=== PATIENT | male | born 1955 | race Caucasian/White ===

== ENCOUNTER → 2016-08-06 | Outpatient (CLI) | payer BC ==
--- NOTE | 2016-08-06 12:47 | US ---
Renal Sonography Clinical History: 60-year-old male with 2 to 3 instances of bilateral flank pain which occurred over 2 weeks ago, with no current pain. ICD10 Diagnostic Code: R10.9. Technique: A curvilinear 5 MHz transducer was used to sonographically evaluate the kidneys and urinar y bladder. Color Doppler was used. Pre- and postvoid imaging was acquired. Comparison Study: Renal sonography, dated January 23, 2014. Findings: The right kidney measures 9.7 x 5.3 x 5.4 cm and on the previous exam in 2013, measured 9.2 x 4.9 x 5.2 cm. The left kidney is larger than the right, currently measuring 12.2 x 6.6 x 7.8 cm, p reviously measured 13.0 x 5.9 x 5.2 cm. The left renal cortex measures 2.8 cm, and the right renal co rtex measures 1.8 cm. There is no focal renal mass, hydronephrosis, or perinephric fluid. Mild hepati c steatosis is observed. On images 13 and 14, there is some bowel gas with acoustic shadowing. The so nographer indicated that the patient had just eaten, and his gallbladder could not be confidently see n adjacent to the bowel gas. On the prior study in 2013, there was a gallbladder filled with stones with a "ADELE" triad (tglv-cvmc-kuxmro complex) present. The urinary bladder is moderately distended, w ith a prevoid volume of 139 mL and postvoid residual of 8 mL. Ureteral jets are confirmed with color Doppler. Impression: Sonographically similar to January 23, 2014. If there is further clinical concern regarding the patient's flank pain, and possible occult nephrour eterolithiasis, unenhanced CT imaging could be considered.
== END ==
LOC: BMCIMAGING 11:29
PROVIDERS: ATTEND Internal Medicine
DX: R10.9 Unspecified abdominal pain (principal)

== ENCOUNTER → 2016-11-14 | Outpatient (CLI) | payer BC | LOC: BMCIMAGING 14:08 | PROVIDERS: ATTEND Orthopaedic Surgery | DX: M25.562 Pain in left knee (principal) ==

== ENCOUNTER 2017-04-21 15:11 | Observation (INO) | payer BC ==
--- NOTE | 2017-04-21 15:36 | EDPHY ---
H & P Stated Complaint: 3 wks ago had R sided stomach pain; got better until today; wants US Time Seen by Provider: 04/21/17 15:34 HPI/ROS: CHIEF COMPLAINT: Intermittent abdominal pain HISTORY OF PRESENT ILLNESS: The patient presents the ED for evaluation of intermittent right upper and mid quadrant pain. The patient 1st experience symptoms approximately 3 weeks ago which were brief and self-limited. He has been asymptomatic until yesterday when he was returning from an international flight and developed recurrent symptoms. The patient complains of moderate right mid quadrant pain with associated nausea. He denies vomiting or diarrhea. He has had a mild upper respiratory infection for the past several weeks. The patient denies hematuria or dysuria. The patient denies prior history of abdominal surgery. He denies additional acute complaints. REVIEW OF SYSTEMS: A comprehensive 10 point review of systems is otherwise negative aside from elements mentioned in the history of present illness. Source: Patient Exam Limitations: No limitations - Personal History Current Tetanus Diphtheria and Acellular Pertussis (TDAP): Yes - Medical/Surgical History Other PMH: HTN, cholesterol. psoriasis - Social History Smoking Status: Never smoked - Physical Exam Exam: General Appearance: Alert, no distress Eyes: Pupils equal and round no pallor or injection ENT, Mouth: Mucous membranes moist Respiratory: There are no retractions, lungs are clear to auscultation Cardiovascular: Regular rate and rhythm Gastrointestinal: Mild tenderness to deep palpation right middle quadrant Neurological: A&O, normal motor function, normal sensory exam, normal cranial nerves Skin: Warm and dry, no rashes Musculoskeletal: Neck is supple nontender Extremities: symmetrical, full range of motion Constitutional: Initial Vital Signs Temperature (C) 36.7 C 04/21/17 15:13 Heart Rate 63 04/21/17 15:13 Respiratory Rate 18 04/21/17 15:13 Blood Pressure 155/106 H 04/21/17 15:13 O2 Sat (%) 95 04/21/17 15:13 O2 Delivery Mode Room Air Allergies/Adverse Reactions: Penicillins Allergy (Mild, Verified 04/21/17 15:12) rash as child Home Medications: Medication Instructions Recorded Aspirin EC [Aspirin EC 81 mg (*)] 81 mg PO DAILY 04/21/17 Folic Acid [Folic Acid 1 MG (*)] 1 mg PO DAILY 04/21/17 Methotrexate [Xatmep] 2.5 mg PO 04/21/17 Rovustatin 04/21/17 Triamterene [Dyrenium 50MG (*)] 50 mg PO DAILY 04/21/17 Medical Decision Making - Diagnostics Imaging Results: Imaging Impressions Abdomen Ultrasound 04/21/17 15:48 Impression: 1. Gallbladder filled with stones and positive sonographic Proctor sign. 2. No biliary dilation or evidence of common bile duct stone. 3. Minimal hepatomegaly and suspect hepatic steatosis. 4. No free fluid. Findings discussed with emergency department physician, Srikanth Warren at April 21, 2017 at 1647 hours. Chest/Thorax CTA 04/21/17 18:40 Impression: 1. No evidence of thrombopulmonary embolic disease. 2. Cholelithiasis. 3. Minimal bibasilar atelectasis. No pleural effusion. 4. Three-vessel calcified coronary artery plaque. Findings discussed with emergency department physician, Srikanth Warren MD on April 21, 2017 at 7:14 p.m. ED Course/Re-evaluation: The patient presents to the ED for evaluation of right upper quadrant and right lower thoracic pain. The patient had a index episode of pain 3 weeks ago which resolved spontaneously. The patient recently returned from [place] and developed recurrent symptoms over the past day. The patient reports a pain in the right lower portion of his chest in his right upper quadrant. On examination he had only minimal tenderness on exam. He was noted to be afebrile with normal liver function test and normal serum chemistries. The patient's gallbladder ultrasound does demonstrate evidence of gallstones. It is difficult to assess the gallbladder wall secondary to the contracted status of the gallbladder. As I re-evaluated the patient several times I am quite unimpressed by his level of tenderness. The differential diagnosis the was expanded to pulmonary embolism given his recent travel. The patient was noted to have an elevated D-dimer. A CT pulmonary angiogram was ordered at 7:[address] pulmonary angiogram demonstrates no evidence of a PE. At this point time the etiology of the patient's symptoms likely are related to his gallbladder. The patient continues to endorse symptoms of ongoing pain. I consulted with Dr. Henry at 7:45pm and have asked him to consult on the patient. The patient will be admitted to the hospital under the care of the surgical service this evening where he will undergo cholecystectomy for presumed cholecystitis status symptomatic cholelithiasis. Differential Diagnosis: Differential diagnosis considered includes pulmonary embolism, cholelithiasis, cholecystitis, peptic ulcer disease, urinary tract infection, nephrolithiasis - Data Points Laboratory Results: Laboratory Results 04/21/17 16:40 04/21/17 15:48 04/21/17 04/21/17 04/21/17 16:40 16:40 16:40 WBC 11.42 10^3/uL H 10^3/uL (3.80-9.50) RBC 4.22 10^6/uL L 10^6/uL (4.40-6.38) Hgb 13.8 g/dL g/dL (13.7-17.5) Hct 38.3 % L % (40.0-51.0) MCV 90.8 fL fL (81.5-99.8) MCH 32.7 pg pg (27.9-34.1) MCHC 36.0 g/dL g/dL (32.4-36.7) RDW 13.3 % % (11.5-15.2) Plt Count 211 10^3/uL 10^3/uL (150-400) MPV 10.0 fL fL (8.7-11.7) Neut % (Auto) 75.3 % H % (39.3-74.2) Lymph % (Auto) 12.8 % L % (15.0-45.0) [place] % (Auto) 9.7 % % (4.5-13.0) Eos % (Auto) 1.2 % % (0.6-7.6) Baso % (Auto) 0.5 % % (0.3-1.7) Nucleat RBC Rel Count 0.0 % % (0.0-0.2) Absolute Neuts (auto) 8.59 10^3/uL H 10^3/uL (1.70-6.50) Absolute Lymphs (auto) 1.46 10^3/uL 10^3/uL (1.00-3.00) Absolute Monos (auto) 1.11 10^3/uL H 10^3/uL (0.30-0.80) Absolute Eos (auto) 0.14 10^3/uL 10^3/uL (0.03-0.40) Absolute Basos (auto) 0.06 10^3/uL 10^3/uL (0.02-0.10) Absolute Nucleated RBC 0.00 10^3/uL 10^3/uL (0-0.01) Immature Gran % 0.5 % % (0.0-1.1) Immature Gran # 0.06 10^3/uL 10^3/uL (0.00-0.10) D-Dimer Sodium Potassium Chloride Carbon Dioxide Anion Gap BUN Creatinine Estimated GFR Glucose Calcium Total Bilirubin Conjugated Bilirubin Unconjugated Bilirubin AST ALT Alkaline Phosphatase Total Protein Albumin Lipase Urine Color YELLOW Urine Appearance HAZY Urine pH 5.0 (5.0-7.5) Ur Specific [place] 1.026 (1.002-1.030) Urine Protein NEGATIVE (NEGATIVE) Urine Ketones NEGATIVE (NEGATIVE) Urine Blood NEGATIVE (NEGATIVE) Urine Nitrate NEGATIVE (NEGATIVE) Urine Bilirubin NEGATIVE (NEGATIVE) Urine Urobilinogen 4.0 EU H EU (0.2-1.0) Ur Leukocyte Esterase NEGATIVE (NEGATIVE) Urine RBC Cancelled 3-5 /hpf H /hpf (0-3) Urine WBC Cancelled 1-3 /hpf /hpf (0-3) Ur Epithelial Cells Cancelled NONE SEEN /lpf /lpf (NONE-1+) Ur Renal Epithelial Cell Cancelled Urine Crystals Cancelled Ammonium Urate Crystals Cancelled Calcium Carbonate Cryst Cancelled Calcium Phosphate Cryst Cancelled Calcium Oxalate Crystal Cancelled Leucine Crystals Cancelled Cystine Crystals Cancelled Uric Acid Crystals Cancelled Triple Phos Crystals Cancelled Sulfonamide Crystals Cancelled Cholesterol Crystals Cancelled Tyrosine Crystals Cancelled Bilirubin Crystals Cancelled Amorphous Sediment Cancelled Urine Bacteria Cancelled Epithelial Casts Cancelled Fatty Casts Cancelled Hyaline Casts Cancelled 1-5 /lpf /lpf (0-1) Granular Casts Cancelled Waxy Casts Cancelled Broad Casts Cancelled RBC Casts Cancelled WBC Casts Cancelled Urine Mucus Cancelled 3+ /lpf H /lpf (NONE-1+) Urine Trichomonas Cancelled Urine Yeast Cancelled Urine Sperm Cancelled Ur Oval Fat Bodies Cancelled Ur Free Fat Droplets Cancelled Urine Glucose NEGATIVE (NEGATIVE) Urine Comment Cancelled 04/21/17 04/21/17 04/21/17 15:50 15:50 15:48 WBC REJ RBC Not Reported Hgb Not Reported Hct Not Reported MCV Not Reported MCH Not Reported MCHC Not Reported RDW Not Reported Plt Count Not Reported MPV Not Reported Neut % (Auto) Not Reported Lymph % (Auto) Not Reported [place] % (Auto) Not Reported Eos % (Auto) Not Reported Baso % (Auto) Not Reported Nucleat RBC Rel Count Not Reported Absolute Neuts (auto) Not Reported Absolute Lymphs (auto) Not Reported Absolute Monos (auto) Not Reported Absolute Eos (auto) Not Reported Absolute Basos (auto) Not Reported Absolute Nucleated RBC Not Reported Immature Gran % Not Reported Immature Gran # Not Reported D-Dimer 1.72 ug/mLFEU H ug/mLFEU (0.00-0.50) Sodium 138 mEq/L mEq/L (134-144) Potassium 3.7 mEq/L mEq/L (3.5-5.2) Chloride 103 mEq/L mEq/L (97-110) Carbon Dioxide 23 mEq/l mEq/l (22-31) Anion Gap 12 mEq/L mEq/L (8-16) BUN 21 mg/dL mg/dL (7-23) Creatinine 1.1 mg/dL mg/dL (0.7-1.3) Estimated GFR > 60 Glucose 108 mg/dL H mg/dL (70-100) Calcium 10.1 mg/dL mg/dL (8.5-10.4) Total Bilirubin 1.3 mg/dL mg/dL (0.1-1.4) Conjugated Bilirubin 0.3 mg/dL mg/dL (0.0-0.5) Unconjugated Bilirubin 1.0 mg/dL mg/dL (0.0-1.1) AST 41 IU/L IU/L (17-59) ALT 52 IU/L IU/L (21-72) Alkaline Phosphatase 85 IU/L IU/L (38-126) Total Protein 8.1 g/dL g/dL (6.3-8.2) Albumin 4.6 g/dL g/dL (3.5-5.0) Lipase 112 IU/L IU/L (23-300) Urine Color Urine Appearance Urine pH Ur Specific [place] Urine Protein Urine Ketones Urine Blood Urine Nitrate Urine Bilirubin Urine Urobilinogen Ur Leukocyte Esterase Urine RBC Urine WBC Ur Epithelial Cells Ur Renal Epithelial Cell Urine Crystals Ammonium Urate Crystals Calcium Carbonate Cryst Calcium Phosphate Cryst Calcium Oxalate Crystal Leucine Crystals Cystine Crystals Uric Acid Crystals Triple Phos Crystals Sulfonamide Crystals Cholesterol Crystals Tyrosine Crystals Bilirubin Crystals Amorphous Sediment Urine Bacteria Epithelial Casts Fatty Casts Hyaline Casts Granular Casts Waxy Casts Broad Casts RBC Casts WBC Casts Urine Mucus Urine Trichomonas Urine Yeast Urine Sperm Ur Oval Fat Bodies Ur Free Fat Droplets Urine Glucose Urine Comment Medications Given: Discontinued Medications Sodium Chloride (Ns) 1,000 mls @ 0 mls/hr IV EDNOW ONE; Wide Open PRN Reason: Protocol Stop: 04/21/17 15:49 Last Admin: 04/21/17 16:30 Dose: 1,000 mls Departure - Departure Disposition: [facility] Inpatient Acute Clinical Impression: Acute cholecystitis Condition: Good
[2017-04-21] MEDS ORDERED: NS 1,000 ML IV ONE (15:48)
[2017-04-21 16:14] LABS: ADD DIFF? NO; ADD MORPH? NO; ADD SCAN? NO; ATYPICAL LYMPHOCYTE FLAG 0 (0-99); FRAGMENT RBC FLAG 0 (0-99); LEFT SHIFT FLG 0 (0-99); LIPEMIA HEMOLYSIS FLAG 0 (0-99); PLATELET CLUMPS FLAG 0 (0-99)
[2017-04-21 16:15] LABS: ALANINE AMINOTRANSFERASE 52 IU/L (21-72); ALBUMIN 4.6 g/dL (3.5-5.0); ALKALINE PHOSPHATASE 85 IU/L (38-126); ANION GAP 12 mEq/L (8-16); ASPARTATE AMINOTRANSFERASE 41 IU/L (17-59); BILIRUBIN,TOTAL 1.3 mg/dL (0.1-1.4); BILIRUBIN-CONJUGATED 0.3 mg/dL (0.0-0.5); CALCIUM 10.1 mg/dL (8.5-10.4); CARBON DIOXIDE 23 mEq/l (22-31); CHLORIDE 103 mEq/L (97-110); CREATININE 1.1 mg/dL (0.7-1.3); GLOMERULAR FILTRATION RATE > 60; GLUCOSE 108 mg/dL (70-100); POTASSIUM 3.7 mEq/L (3.5-5.2); SODIUM 138 mEq/L (134-144); TOTAL PROTEIN 8.1 g/dL (6.3-8.2)
[2017-04-21 16:58] LABS: % IMMATURE GRANULYOCYTES 0.5 % (0.0-1.1); ABSOLUTE IMMATURE GRANULOCYTES 0.06 10^3/uL (0.00-0.10); ADD DIFF? NO; ADD MORPH? NO; ADD SCAN? NO; ATYPICAL LYMPHOCYTE FLAG 0 (0-99); FRAGMENT RBC FLAG 0 (0-99); HEMATOCRIT 38.3 % (40.0-51.0); HEMOGLOBIN 13.8 g/dL (13.7-17.5); LEFT SHIFT FLG 0 (0-99); LIPEMIA HEMOLYSIS FLAG 90 (0-99); MEAN CELL HEMOGLOBIN 32.7 pg (27.9-34.1); MEAN CELL VOLUME 90.8 fL (81.5-99.8); PLATELET CLUMPS FLAG 0 (0-99); PLATELET COUNT 211 10^3/uL (150-400); RED BLOOD CELL COUNT 4.22 10^6/uL (4.40-6.38); RED CELL DISTRIBUTION WIDTH 13.3 % (11.5-15.2)
[2017-04-21 17:24] LABS: COLOR YELLOW; LEUKOCYTE ESTERASE,URINE NEGATIVE (NEGATIVE); NITRITE,URINE NEGATIVE (NEGATIVE)
[2017-04-21 18:10] LABS: MUCUS 3+ /lpf (NONE-1+)
[2017-04-21] MEDS ORDERED: IOPAMIDOL (ISOVUE 370) 100 ML BTL IV ONE (18:42)
--- NOTE | 2017-04-21 20:31 | CPEKG ---
Heart Rate: 75 RR Interval: 800 P-R Interval: 184 QRSD Interval: 100 QT Interval: 428 QTC Interval: 479 P [place]: 21 QRS [place]: -3 T Wave [place]: -6 EKG Severity - BORDERLINE ECG - EKG Impression: SINUS RHYTHM Electronically Signed By: Srikanth Warren 21-Apr-2017 22:53:36
[2017-04-21] MEDS ORDERED: BUPIVACAINE/EPI 0.5% 30 ML SDV ONE (20:42)
[2017-04-21] MEDS ORDERED: fentaNYL 100 MCG/2 ML INJ ONE (21:09)
[2017-04-21] MEDS ORDERED: PROPOFOL 200 MG/20 ML VIAL ONE (21:09)
[2017-04-21] MEDS ORDERED: MIDAZOLAM 2 MG/2 ML VIAL ONE (21:09)
[2017-04-21] MEDS ORDERED: ROCURONIUM 50 MG/5 ML VIAL ONE (21:10)
--- NOTE | 2017-04-21 21:46 | PDANEPAE ---
ANE Past Medical History - Cardiovascular History Hx Hypertension: Yes Hx Chest Pain: No ANE Review of Systems Review of Systems: ANE Patient History - Allergies Allergies/Adverse Reactions: Penicillins Allergy (Mild, Verified 04/21/17 15:12) rash as child - Home Medications Home Medications: Aspirin EC [Aspirin EC 81 mg (*)] 81 mg PO DAILY 04/21/17 [Last Taken 04/20/17] Folic Acid [Folic Acid 1 MG (*)] 1 mg PO DAILY 04/21/17 [Last Taken 04/20/17] Methotrexate Sodium [Rheumatrex] 7.5 mg PO TU 04/21/17 [Last Taken 04/16/17] Pediatric Multivit Comb No.76 [Gummy Dinos] 1 each PO DAILY 04/21/17 [Last Taken 04/20/17] Rosuvastatin Calcium [Crestor 10mg (RX)] 15 mg PO DAILY 04/21/17 [Last Taken ] Triamterene/Hctz 37.5/25 [Dyazide 37.5/25 (*)] 1 each PO DAILY 04/21/17 [Last Taken 04/20/17] - NPO status NPO Since - Liquids (Date): 04/21/17 NPO Since - Liquids (Time): 14:00 NPO Since - Solids (Date): 04/21/17 NPO Since - Solids (Time): 07:00 - Anes Hx Anes Hx: no prior problems - Smoking Hx Smoking Status: Never smoked ANE Labs/Vital Signs - Labs Result Diagrams: 04/21/17 16:40 04/21/17 15:48 - Vital Signs Blood Pressure: 160/99 Heart Rate: 73 Respiratory Rate: 16 O2 Sat (%): 93 Height: 180.34 cm Weight: 86.183 kg ANE Physical Exam - Airway Mallampati Score: Class 2 Mouth exam: pierce - ASA Status ASA Status: II, E ANE Anesthesia Plan Anesthesia Plan: general endotracheal anesthesia
[2017-04-21] MEDS ORDERED: SUGAMMADEX SODIUM 200 MG/2 ML VIAL IVP ONE (22:04)
[2017-04-21] MEDS ORDERED: ONDANSETRON 4 MG/2 ML VIAL IVP PRN (22:28)
--- NOTE | 2017-04-21 22:28 | POSTOPPROG ---
Post Op Note Date of Operation: 04/21/17 Surgeon: Austin Henry Anesthesia: GET(General Endotracheal) Pre-op Diagnosis: acute cholecyhstitis Post-op Diagnosis: same Indication: same Procedure: lap choly Findings: acute choly Inf/Abcess present in the surg proc area at time of surgery?: No EBL: Minimal
[2017-04-21] MEDS ORDERED: HYDROCODONE/APAP 5/325 TAB PO PRN (22:30)
[2017-04-21] MEDS ORDERED: LR 1,000 ML IV SCH (22:30)
[2017-04-21] MEDS ORDERED: fentaNYL 100 MCG/2 ML INJ IVP PRN (22:33)
[2017-04-21] MEDS ORDERED: NALOXONE HCL 0.4 MG/ML INJ IVP PRN (22:33)
[2017-04-21] MEDS ORDERED: LR 500 ML IV PRN (22:33)
[2017-04-21] MEDS ORDERED: MEPERIDINE 25 MG/ML SYR IVP PRN (22:33)
[2017-04-21] MEDS ORDERED: PROMETHAZINE HCL 25 MG/ML INJ IVP PRN (22:33)
[2017-04-21] MEDS ORDERED: DEXAMETHASONE 4 MG/ML VIAL IVP PRN (22:33)
[2017-04-21] MEDS ORDERED: ALBUTEROL 3 ML DEYVIAL IH PRN (22:33)
--- NOTE | 2017-04-21 22:34 | POSTANESTH ---
Post Anesthetic Evaluation Cardiovascular Status: Similar to Pre-Op Cond Respiratory Status: Similar to Pre-op Cond. Level of Consciousness/Mental Status: Can Participate in Eval Pain Control: Adequate, Prn Tx Ordered Nausea/Vomiting Control: Adequate, Prn Tx Ordered Complications Possibly Related to Anesthesia: None Noted
[2017-04-21] MEDS ORDERED: MEPERIDINE 25 MG/ML SYR ONE (22:42)
--- NOTE | 2017-04-21 23:12 | GOP ---
[f rep st] OPERATIVE REPORT DATE OF OPERATION: SURGEON: Austin Henry MD PREOPERATIVE DIAGNOSIS: 1. Cholelithiasis. 2. Cholecystitis. POSTOPERATIVE DIAGNOSIS: 1. Cholelithiasis. 2. Cholecystitis. PROCEDURE PERFORMED: Laparoscopic cholecystectomy. FINDINGS: INDICATIONS: A 61-year-old male with unrelenting right upper quadrant pain. Ultrasound shows gallbl adder contracted around numerous stones. DESCRIPTION OF PROCEDURE: General anesthetic, the abdomen scrubbed with ChloraPrep, draped in the ua sterile fashion. Infraumbilical incision made. A Veress needle used to achieve a pneumoperitone um. A 12 mm trocar was placed. Two 5 mm ports in the upper abdomen. The gallbladder was quite dist ended and had to be aspirated with an 18-gauge needle just to allow it to be grasped. It was eventua lly pushed cephalad, and omental adhesions as well as swollen soft tissues around the neck of the gal lbladder were eventually dissected away such that the cystic duct and artery could be identified. Th e cystic plate was cleared off, then the duct and artery were clipped and divided. The gallbladder, which was quite fibrotic, was removed from below upward with electrocautery, placed in EndoPouch. Mi nor bleeding in the liver bed was controlled with cautery. All fluid was aspirated from the right up per quadrant, and to get the gallbladder out of the patient, the fascial incision at the umbilicus mendez d to be widened slightly. Once this was out, it was closed with several interrupted 0 Vicryl figure- of-eight sutures, skin closed with 4-0 Vicryl and Dermabond. Patient tolerated the procedure well. /[id number]/MODL
[2017-04-21 23:15] VITALS: RESP 18
--- NOTE | 2017-04-22 06:32 | GDS ---
[f rep st] DISCHARGE SUMMARY PRESENT ILLNESS: Patient was admitted with acute cholecystitis, cholelithiasis. HOSPITAL COURSE: The patient had a cholecystectomy. Did well. Was discharged home. Follow up with Dr. Henry in a week. /[id number]/MODL
[2017-04-22 07:26] VITALS: BP 133/79; PULSE 77; TEMP 98.8; O2SAT 91
[2017-04-22] MEDS ORDERED: ASPIRIN EC 81 MG TAB PO SCH (09:00)
[2017-04-22] MEDS ORDERED: TRIAMTERENE/HCTZ 37.5/25 1 EACH CAP PO SCH (09:00)
[2017-04-22] MEDS ORDERED: ROSUVASTATIN CALCIUM 10 MG TAB PO SCH (09:00)
--- NOTE | 2017-04-22 16:16 | ASDISCHSUM ---
Discharge Information Plan Status:Home with No Needs Medically Cleared to Leave:04/22/2017 Discharge Date:04/22/2017 09:14 AM CM D/C Disposition:Home, Routine, Self-Care ADT D/C Disposition:Home, Routine, Self-Care Projected Discharge Date:04/22/2017 12:00 AM Transportation at D/C: Discharge Delay Reason: Follow-Up Date:04/22/2017 12:00 AM Discharge Slot: Final Diagnosis: Placement Information Patient Contact Information Contact Name:WILLOW Relationship: Address:[address] [place] [address] [place] Work Phone: City:[place] Alternate Phone: [facility]/Zip Code:[place] [address] Email: Financial Information Financial Class:HMO and PPO Plans Primary Plan Desc:[employer] PLAN Primary Plan Number:[id number] Secondary Plan Desc: Secondary Plan Number: Assessment Information Intervention Information
== END 2017-04-22 09:14 | disposition home or self-care (01) ==
LOC: F3E 23:07
PROVIDERS: ADMIT Surgery; ATTEND Surgery
PROC: 0FT44ZZ Resection of Gallbladder, Percutaneous Endoscopic Approach (ICD-10-PCS; principal; 2017-04-21 21:00)
DX: K80.00 Calculus of gallbladder with acute cholecystitis without obstruction (principal)
CPT/HCPCS: 47562; 71275; 76705; 93005; G0378; J2250; J2704; J3010; Q9967

== ENCOUNTER 2018-12-24 22:07 | Emergency (ER) | payer BC | END 2018-12-24 23:32 | disposition home or self-care (01) ==